=== PATIENT | female | born 1975 | race Caucasian/White ===

== ENCOUNTER 2018-09-03 10:22 | Emergency (ER) | payer OTHER ==
[~2018-09-03] VITALS: Ht 167.6 cm; Wt 104.3 kg
[~2018-09-03 10:22] MED LIST: CEPH250C16 PO
--- NOTE | 2018-09-03 10:28 | NUR ---
PT AMBULATED TO ER BED 01
[2018-09-03 10:40] VITALS: BP 111/73
--- NOTE | 2018-09-03 10:45 | NUR ---
PATIENT PRESENTS TO ED WITH COLD SYMPTOMS X2 DAYS. PT STATES SHE HAS A COUGH AND CHEST CONGESTION. SKIN IS PINK/WARM/DRY; AAOX4 WITH EVEN AND STEADY GAIT; LUNGS CLEAR BL; HR EVEN AND REGULAR; PT DENIES ANY FEVER, CP, SOB AT THIS TIME; PATIENT STATES PAIN OF 8/10 AT THIS TIME; VSS; PATIENT POSITIONED FOR COMFORT; HOB ELEVATED; BEDRAILS UP X2; BED DOWN. ER MD MADE AWARE OF PT STATUS.
[2018-09-03] MEDS ORDERED: PROMETHAZINE 25 MG/ML VIAL IM ONE (11:15)
[2018-09-03] MEDS ORDERED: ALBUTEROL SULFATE/IPRATROPIU 3 ML SOL IH ONE (11:15)
--- NOTE | 2018-09-03 11:24 | NUR ---
ADMITTING DX: COLD SYMPTOMS HX: DENIES ASTHMA/COPD LOC AWAKE AND ALERT RESPONSIVE TO [employer] COMMANDS EDUCATION PROVIDED TO PATIENT WITH ACKNOWLEDGEMENT ON HHN THERAPY AND RESPIRATORY DRUG HHN THERAPY GIVEN ORDERED ENCOURAGED FOR INTERMITTENT DEEP BREATHING AND COUGH DURING THERAPY TOLERATED WELL WITHOUT INCIDENT
[2018-09-03 12:40] VITALS: BP 111/73
--- NOTE | 2018-09-03 12:41 | NUR ---
Patient discharged with v/s stable. Written and verbal after care instructions given and explained. Patient alert, oriented and verbalized understanding of instructions. Ambulatory with steady gait. All questions addressed prior to discharge. ID band removed. Patient advised to follow up with PMD. Rx of AZITHROMYCIN, MOTRIN, PROMETHAZINE given. Patient educated on indication of medication including possible reaction and side effects. Opportunity to ask questions provided and answered.
== END 2018-09-03 12:41 | disposition home or self-care (01) ==
LOC: MED 10:22
DX: J32.9 Chronic sinusitis, unspecified (principal); J11.1 Influenza due to unidentified influenza virus with other respiratory manifestations; Z88.0 Allergy status to penicillin; Z88.2 Allergy status to sulfonamides; Z79.899 Other long term (current) drug therapy
CPT/HCPCS: 94640; 96372; 99283; J2550; J7620

== ENCOUNTER 2022-01-26 08:58 | Emergency (ER) | payer OTHER ==
[~2022-01-26] VITALS: Ht 170.2 cm; Wt 111.7 kg
[2022-01-26 09:06] VITALS: BP 140/80
--- NOTE | 2022-01-26 09:10 | NUR ---
PT AMB TO BED 2.
--- NOTE | 2022-01-26 09:18 | NUR ---
46/F PRESENTS TO ED WITH C/O LEFT SIDED NECK PAIN X2 DAYS. PATIENT DENIES RECENT INJURY OR TRAUMA STATING SHE WOKE UP WITH THE PAIN. PATIENT REPORTS TAKING IBUPROFEN YESTERDAY BUT STATES "I FEEL LIKE THE PAIN IS WORSE TODAY." REPORTS 4/10 THROBBING PAIN THAT WORSENS WHEN SHE ATTEMPTS TO TURN HER HEAD. PATIENT DENIES HEADACHE, DIZZINESS, VISION CHANGES OR RECENT COLD SYMPTOMS.
[2022-01-26] MEDS ORDERED: LIDOCAINE 5% 1 EA PATCH TP STA (09:36)
[2022-01-26] MEDS ORDERED: KETOROLAC 30 MG/ML VIAL IM ONE (09:40)
[2022-01-26] MEDS ORDERED: CYCLOBENZAPRINE 10 MG TAB PO ONE (09:40)
[2022-01-26] MEDS ORDERED: CRUSHER, PILL MC ONE (09:42)
--- NOTE | 2022-01-26 09:45 | NUR ---
PATIENT TO XRAY VIA W/C
[2022-01-26] MEDS ORDERED: LID5T TP (10:48)
[2022-01-26] MEDS ORDERED: CYCL-711 PO (10:48)
[2022-01-26] MEDS ORDERED: IBUP-1842 PO (10:48)
[2022-01-26] MEDS ORDERED: DICL100G5 TP (10:48)
[2022-01-26 11:02] VITALS: BP 125/75
--- NOTE | 2022-01-26 11:02 | NUR ---
Patient discharged with v/s stable. Written and verbal after care instructions ABOUT CERVICAL STRAIN AND SPRAIN given and explained. Patient alert, oriented and verbalized understanding of instructions. Ambulatory with steady gait. All questions addressed prior to discharge. ID band removed. Patient advised to follow up with PMD. Rx of FLEXERIL, DICLOFENAC SODIUM, MOTRIN AND LIDODERM PATCH given. Patient educated on indication of medication including possible reaction and side effects. Opportunity to ask questions provided and answered.
== END 2022-01-26 11:02 | disposition home or self-care (01) ==
LOC: MED 08:58
DX: S16.1XXA Strain of muscle, fascia and tendon at neck level, initial encounter (principal); Z79.899 Other long term (current) drug therapy; Z79.2 Long term (current) use of antibiotics; Z79.1 Long term (current) use of non-steroidal anti-inflammatories (NSAID); Z88.0 Allergy status to penicillin; Z88.2 Allergy status to sulfonamides; X58.XXXA Exposure to other specified factors, initial encounter; Y92.89 Other specified places as the place of occurrence of the external cause; Y93.89 Activity, other specified; Y99.8 Other external cause status
CPT/HCPCS: 72040; 81025; 96372; 99283; J1885

== ENCOUNTER 2023-08-14 08:46 | Emergency (ER) | payer OTHER ==
[~2023-08-14] VITALS: Ht 170.2 cm; Wt 113.4 kg
[~2023-08-14 08:46] MED LIST changes: +BENZ-300 PO; +CYCL-711 PO; +DICL100G32 TP; +IBUP-1842 PO; +IBUP-2218 PO; +LID5T TP
[2023-08-14 09:34] VITALS: BP 124/71; PULSE 64; RESP 18; TEMP 97.9; O2SAT 95
[2023-08-14 10:28] LABS: FLU A ANTIGEN negative (NEGATIVE); FLU B ANTIGEN negative (NEGATIVE)
[2023-08-14] MEDS ORDERED: IBUP-2213 PO (10:43)
[2023-08-14] MEDS ORDERED: ACET-2619 PO (10:43)
[2023-08-14] MEDS ORDERED: PROM118S5 PO (10:43)
== END 2023-08-14 10:45 | disposition home or self-care (01) ==
LOC: MED 08:46
DX: J10.1 Influenza due to other identified influenza virus with other respiratory manifestations (principal); Z20.822 Contact with and (suspected) exposure to COVID-19; Z79.899 Other long term (current) drug therapy; Z79.1 Long term (current) use of non-steroidal anti-inflammatories (NSAID); Z79.2 Long term (current) use of antibiotics; Z88.0 Allergy status to penicillin
CPT/HCPCS: 99283

== ENCOUNTER 2023-10-24 09:44 | Emergency (ER) | payer OTHER ==
[~2023-10-24] VITALS: Ht 170.2 cm; Wt 113.4 kg
[~2023-10-24 09:44] MED LIST changes: +ACET-2619 PO; +IBUP-2213 PO; +PROM118S5 PO
[2023-10-24 09:57] VITALS: BP 86/66; PULSE 66; RESP 14; TEMP 96.8; O2SAT 96
[2023-10-24] MEDS ORDERED: IBUP-2213 PO (10:33)
[2023-10-24] MEDS ORDERED: LID5T TP (10:33)
[2023-10-24] MEDS: LIDOCAINE 5% 1 EA PATCH TP ONE (10:37)
[2023-10-24 10:39] VITALS: BP 123/81; RESP 19
== END 2023-10-24 10:58 | disposition home or self-care (01) ==
LOC: MED 09:44
DX: G57.11 Meralgia paresthetica, right lower limb (principal); M25.451 Effusion, right hip; Z88.0 Allergy status to penicillin; Z79.899 Other long term (current) drug therapy
CPT/HCPCS: 99284

== ENCOUNTER 2024-03-28 11:35 | Emergency (ER) | payer OTHER ==
[~2024-03-28] VITALS: Ht 170.2 cm; Wt 112.5 kg
[2024-03-28 11:45] VITALS: BP 141/87; PULSE 99; RESP 20; TEMP 98.5; O2SAT 98
[2024-03-28 12:31] LABS: APPEARANCE,URINE CLEAR (CLEAR); BILIRUBIN,URINE NEGATIVE (NEGATIVE); BLOOD, URINE TRACE-I (NEGATIVE); COLOR,URINE YELLOW (YELLOW); LEUKOCYTE ESTERASE ,URINE TRACE (NEGATIVE); NITRITE, URINE NEGATIVE (NEGATIVE); PROTEIN,URINE TRACE (NEGATIVE); UGLUCOSE NEGATIVE (NEGATIVE); UROBILINOGEN,URINE 0.2 EU/dL (0.2 - 1)
[2024-03-28 12:36] LABS: BACTERIA,URINE FEW /HPF (None Seen); SQUAMOUS EPITHELIAL CELL,UR 0-3 (FEW) /LPF (0-3 (FEW))
[2024-03-28] MEDS: NACL 0.9% 1,000 ML IV ONE (12:38)
[2024-03-28] MEDS: MORPHINE SULFATE 4 MG/ML SYR IVP ONE (12:41)
[2024-03-28 12:43] LABS: BASOPHILS # (AUTO) 0.1 K/uL (0.00-0.22); BASOPHILS % (AUTO) 1.2 % (0.0-2.0); EOSINOPHILS % (AUTO) 0.3 % (0.0-4.0); HEMATOCRIT 43.1 % (36-48); HEMOGLOBIN 14.5 g/dL (12.0-16.0); LYMPHOCYTES # (AUTO) 0.9 K/uL (2.5-16.5); LYMPHOCYTES % (AUTO) 14.8 % (20.5-51.1); MEAN CORPUSCULAR HEMOGLOBIN 31 pg (27-31); MEAN CORPUSCULAR HGB CONC 34 g/dL (33-37); MEAN CORPUSCULAR VOLUME 90.8 fL (80-94); MONOCYTES # (AUTO) 0.2 K/uL (0.8-1.0); MONOCYTES % (AUTO) 3.7 % (1.7-9.3); NEUTROPHILS # (AUTO) 5.1 K/uL (1.8-7.7); PLATELET COUNT (AUTO) 289 K/uL (140-450); RED BLOOD CELL COUNT(AUTO) 4.75 MIL/uL (4.20-5.40); RED CELL DISTRIBUTION WIDTH 13.8 % (11.6-13.7); WHITE BLOOD COUNT (AUTO) 6.3 K/uL (4.8-10.8)
[2024-03-28] MEDS: ONDANSETRON 4 MG/2 ML VIAL IVP ONE (12:44)
[2024-03-28 13:00] LABS: CALCIUM 9.5 mg/dL (8.5-10.1); CARBON DIOXIDE 26.8 mmol/L (21-32); CREATININE 0.8 mg/dL (0.6-1.3); POTASSIUM 3.8 mmol/L (3.5-5.1)
[2024-03-28 13:06] LABS: BILIRUBIN,DIRECT 0.1 mg/dL (0.0-0.3); TOTAL BILIRUBIN 0.5 mg/dL (0.0-1.0); TOTAL PROTEIN, SERUM 7.8 g/dL (6.4-8.2)
[2024-03-28] MEDS ORDERED: ACET-8905 PO (14:50)
[2024-03-28] MEDS ORDERED: NITR100C7 PO (14:50)
[2024-03-28] MEDS ORDERED: ONDA-188 SL (14:50)
[2024-03-28 15:10] VITALS: BP 141/87; PULSE 121; RESP 20; TEMP 98.5; O2SAT 96
== END 2024-03-28 15:10 | disposition home or self-care (01) ==
LOC: MED 11:35
DX: K80.50 Calculus of bile duct without cholangitis or cholecystitis without obstruction (principal); N39.0 Urinary tract infection, site not specified; I10 Essential (primary) hypertension; Z98.51 Tubal ligation status; Z79.899 Other long term (current) drug therapy; Z88.2 Allergy status to sulfonamides; Z88.0 Allergy status to penicillin
CPT/HCPCS: 36415; 74176; 80048; 80076; 81001; 83690; 85025; 87086; 96361; 96374; 96375; 99285; J2270; J2405; J7030

== ENCOUNTER 2024-07-03 08:56 | Emergency (ER) | payer OTHER ==
[~2024-07-03] VITALS: Ht 170.2 cm; Wt 117.9 kg
[~2024-07-03 08:56] MED LIST changes: +ACET-8905 PO; +NITR100C7 PO; +ONDA-188 SL
[2024-07-03 09:02] VITALS: BP 141/80; PULSE 74; RESP 18; TEMP 97.3; O2SAT 96
[2024-07-03 11:05] LABS: FLU A ANTIGEN negative (NEGATIVE); FLU B ANTIGEN negative (NEGATIVE)
[2024-07-03] MEDS ORDERED: ALBU0.0912 INH (11:26)
[2024-07-03] MEDS: guaiFENesin DM 200/20 MG-10 ML 10 ML UDC PO ONE (11:26)
[2024-07-03] MEDS ORDERED: GUAI237L61 PO (11:26)
[2024-07-03 11:38] VITALS: BP 141/80; PULSE 74; RESP 18; TEMP 97.3; O2SAT 96
== END 2024-07-03 11:39 | disposition home or self-care (01) ==
LOC: MED 08:56
DX: J06.9 Acute upper respiratory infection, unspecified (principal); Z20.822 Contact with and (suspected) exposure to COVID-19; I10 Essential (primary) hypertension; Z79.899 Other long term (current) drug therapy; Z88.2 Allergy status to sulfonamides
CPT/HCPCS: 71045; 93005; 99285